=== PATIENT | male | born 1980 | race Caucasian/White ===

== ENCOUNTER 2025-01-26 10:12 | Emergency (ER) | payer OTHER, SELFPAY ==
--- OUTSIDE RECORDS SUMMARY | 2025-01-12 12:30 | XMS_ITS | Encounter Summary ---
Author Organization [facility] Address [address] [place] [address] Care Team Providers Care Seals Engraver Name Role Phone Jadiel Garcia Primary Care Provider [phone] Encounter Details DateTypeDepartmentCare Team (Latest Contact Info)Gxvmonmuccv76/17/2025 12:30 PM ESTOffice Visit [facility] [address] [place] [id number] Shasta Castañeda, SALES EXHIBITOR [address] [id number] Cough, unspecified type (Primary Dx); Viral URI with cough Social History Tobacco UseTypesPacks/DayYears UsedDateSmoking Tobacco: FormerCigarettesQuit: 02/26/2014Passive Smoke Exposure: PastSmokeless Tobacco: CurrentChewAlcohol Use Standard Drinks/WeekCommentsYes0 (1 standard drink = 0.6 oz pure alcohol) caffeine: more than 4 cups per day coffeeSocial Connection and Isolation Panel AnswerDate RecordedIn a typical week, how many times do you talk on the phone with family, friends, or neighbors?Twice a week05/23/2023How often do you get together with friends or relatives?Twice a week05/23/2023How often do you attend lutheran or baptism services?More than 4 times per year05/23/2023o you belong to any clubs or organizations such as lutheran groups, unions, fraternal or athletic groups, or school groups?Yes05/23/2023How often do you attend meetings of the clubs or organizations you belong to?More than 4 times per year05/23/2023 Are you , , , , never , or living with a partner?Nnkhsvq6305/23/2023Overall Financial Resource Strain (CARDIA)AnswerDate RecordedHow hard is it for you to pay for the very basics like food, housing, medical care, and heating?Not hard at all05/23/2023Fin[facility] [place] of Occupational Health - Occupational Stress QuestionnaireAnswerDate RecordedDo you feel stress - tense, restless, nervous, or anxious, or unable to sleep at night because yourmind is troubled all the time - these days?Not at all05/23/2023 Exercise Vital SignAnswerDate RecordedOn average, how many days per week do you engage in moderate to strenuous exercise (like a brisk walk)?7 days05/23/2023On average, how many minutes do you engage in exercise at this level?150+ min 05/23/2023Hunger Vital SignAnswerDate RecordedWithin the past 12 months, you worried that your food would run out before you got the money to buymore.Never true05/23/2023Within the past 12 months, the food you bought just didn't last and you didn't have money to get more.Never true05/23/2023RAPARE - TransportationAnswerDate RecordedIn the past 12 months, has lack of transportation kept you from medical appointments or from getting medications?No 05/23/2023In the past 12 months, has lack of transportation kept you from meetings, work, or from getting things needed for daily living?No05/23/2023 Housing Stability Vital SignAnswerDate RecordedIn the last 12 months, was there a time when you were not able to pay the mortgage or rent on time?No05/23/2023In the last 12 months, how many places have you lived?In the last 12 months, was there a time when you did not have a steady place to sleep or slept in ashelter (including now)?No05/23/2023UDIT-CAnswerDate RecordedQ1: How often do you have a drink containing alcohol?Never01/12/2025verage Number of Drinks Not on file01/12/2025Frequency of Binge DrinkingNot on file01/12/2025Sex and Gender InformationValueDate RecordedSex Assigned at BirthNot on fileLegal Sex Male05/10/2022 7:06 PM EDTGender IdentityNot on fileSexual OrientationNot on filedocumented as of this encounter Last Filed Vital Signs Vital SignReadingTime TakenCommentsBlood Vfhlmmgr580/9001/12/2025 12:38 PM EST Cowbd677801/12/2025 12:38 PM EBWJgqxoejosxf55.1 ??C (98.7 ??F)01/12/2025 12:38 PM ESTRespiratory Qrik8212 12:38 PM ESTOxygen Rsajwlyzsp53%01/12/2025 12:38 PM ESTInhaled Oxygen Concentration--Hefysp29.7 kg (178 lb)01/12/2025 12:38 PM ESTHeight--Body Mass Index29.62005/24/2023 2:21 PM EDTdocumented in this encounter Functional Status documented as of this encounter Progress Notes * Shasta Castañeda NP - 01/12/2025 12:30 PM EST Images from the original note were not included. [address] [facility], [address] P: [phone] F: [phone] HPI Historian of HPI: patient Rik Pierre is a 44 y.o. male who presents today to the Urgent Care with the following complaints and denials which have been present for 4 day(s) Pt denies any vomiting and nausea. Pt admits to slight diarrhea the last few days. Pt agrees to testing. C/O Denies Symptom Comments [x] [] Runny Nose PND [] [x] Difficulty Swallowing [x] [] Sore Throat Raspy voice, tenderness [x] [] Cough cough, chest congestion [] [x] Ear Pain [x] [] Fever Feels warm [x] [] Chills Last night [x] [] Nasal Congestion Stuffy in the morning [x] [] Myalgia Joint stiffness [] [x] Sinus Pain [x] [] Sinus Pressure Bilateral eye pressure Additional Comments: pt has taken zinc, day and night qyill, OTC medication with relief ROS A complete system ROS was performed and negative aside from the pertinent positives noted in the HPI and PE. Visit Vitals BP 130/90 (BP Location: Left arm, Patient Position: Sitting, BP Cuff Size: Large adult) Pulse 80 Temp 98.7 ??F (Oral) Resp 20 Wt 178 lb SpO2 99% BMI 29.62 kg/m?? Smoking Status Former BSA 1.92 m?? IH Testing: The following tests were performed PCR Strep Test PCR Flu Test PCR COVID Test SEE TEST(S) ORDERS FOR RESULTS PHYSICAL EXAM Physical Exam Vitals reviewed. Constitutional: General: He is not in acute distress. Appearance: Normal appearance. HENT: Head: Normocephalic and atraumatic. Right Ear: Hearing, tympanic membrane, ear canal and external ear normal. Left Ear: Hearing, tympanic membrane, ear canal and external ear normal. Nose: Congestion present. Mouth/Throat: Lips: [place]. Mouth: Mucous membranes are moist. Pharynx: Oropharynx is clear. Uvula midline. Postnasal drip present. Eyes: Extraocular Movements: Extraocular movements intact. Conjunctiva/sclera: Conjunctivae normal. Pupils: Pupils are equal, round, and reactive to light. Cardiovascular: Rate and Rhythm: Normal rate and regular rhythm. Pulses: Normal pulses. Heart sounds: Normal heart sounds. Pulmonary: Effort: Pulmonary effort is normal. No respiratory distress. Breath sounds: Normal breath sounds. No wheezing, rhonchi or rales. Musculoskeletal: General: Normal range of motion. Cervical back: Normal range of motion and neck supple. Skin: General: Skin is warm and dry. Capillary Refill: Capillary refill takes less than 2 seconds. Findings: No rash. Neurological: General: No focal deficit present. Mental Status: He is alert and oriented to person, place, and time. Psychiatric: Mood and Affect: Mood normal. Behavior: Behavior normal. Thought Content: Thought content normal. Judgment: Judgment normal. TREATMENT PLAN 1. Cough, unspecified type (Primary) Strep, COVID 19, and Influenza A/B testing is negative. New medication as directed. Acetaminophen for reduction of fever and pain. Increase fluids. Good handwashing. Discussed warning signs of worsening infection and when to report to ER. New toothbrush in 24 hours. Call office if symptoms have notstarted to improve within the next 72 hours. Patient verbalized understanding of instructions. - STREP DNA PROBE - RAPID DNA COVID - INFLUENZA DNA PROBE - benzonatate (Tessalon) 100 MG capsule; Take 1 capsule (100 mg) by mouth 3 (three) times a day as needed for cough for up to 7 days Do not crush or chew. Dispense: 21 capsule; Refill: 0 2. Viral URI with cough Pt advised they likely have a viral illness and will clear on its own by day 7- 10. Advised on what OTC medications to take to treat fever, sore throat, body aches, sinus pain, cough, chest congestion, nose and sinus congestion, sneezing, runny nose, watery, itchy eyes, overall congestion relief, faster recovery and how to avoid spreading your illness. Call or RTO if worsening or not improving as expected. - methylPREDNISolone (Medrol Dospak) 4 MG tablets; Follow schedule on package instructions Dispense: 21 tablet; Refill: 0 documented in this encounter Plan of Treatment Not on file documented as of this encounter Procedures Procedure NamePriorityDate/TimeAssociated DiagnosisCommentsSTREP DNA PROBE Syuuzrq5001/12/2025 1:00 PM EST Cough, unspecified type RAPID DNA HLJIUYfuhnxh50/17/2025 1:00 PM EST Cough, unspecified type INFLUENZA DNA HTNWALcnhykb94/17/2025 1:00 PM EST Cough, unspecified type documented in this encounter Results * INFLUENZA DNA PROBE (01/12/2025 1:00 PM EST)ComponentValueRef RangeTest Method Analysis TimePerformed AtPathologist SignatureINFLUENZA AnegativeNegative INFLUENZA BnegativeNegativeSpecimen (Source)Anatomical Location / Laterality Collection Method / VolumeCollection TimeReceived TbmpFhkxi76/17/2025 1:00 PM EST Narrative Authorizing ProviderResult TypeResult StatusGordo Joy DOPOINT OF CARE TEST ENTER/EDIT ORDERABLESFinal Result * RAPID DNA COVID (01/12/2025 1:00 PM EST)ComponentValueRef RangeTest Method Analysis TimePerformed AtPathologist SignatureCOVID-19 NAATnegativeNegative Specimen (Source)Anatomical Location / LateralityCollection Method / Volume Collection TimeReceived SzriYdhux88/17/2025 1:00 PM EST Narrative Authorizing ProviderResult TypeResult StatusGordo Jennie Rufino DOPOINT OF CARE TEST ENTER/EDIT ORDERABLESFinal Result * STREP DNA PROBE (01/12/2025 1:00 PM EST)ComponentValueRef RangeTest Method Analysis TimePerformed AtPathologist SignatureRESULTnegativeNegativeSpecimen (Source)Anatomical Location / LateralityCollection Method / VolumeCollection TimeReceived RxvlFsogpz51/17/2025 1:00 PM EST Narrative Authorizing ProviderResult TypeResult StatusGordo Joy DOPOINT OF CARE TEST ENTER/EDIT ORDERABLESFinal Result documented in this encounter Visit Diagnoses Diagnosis Cough, unspecified type- Primary Viral URI with cough documented in this encounter Care Teams Team MemberRelationshipSpecialtyStart DateEnd Date Jadiel Garcia, [address] [address] PCP - GeneralFamily Medicine07/04/22documented as of this encounter
[2025-01-26] VITALS (25 sets, daily range): BP systolic 128–158; BP diastolic 90–110; PULSE 91–136; TEMP 36.7; O2SAT 95–98; BMI 29.8
--- NOTE | 2025-01-26 10:22 | ED.CHESTPAI1 ---
HPI - Chest Pain General Chief Complaint: Chest Pain Stated Complaint: CHEST PAIN SOB Time Seen by Provider: 01/26/25 10:22 Source: patient Mode of arrival: walk-in Limitations: no limitations History of Present Illness HPI narrative: The patient is a 45-year-old male with no known past medical history, presenting to the ER with a right upper chest pain that started almost within the last hour, patient mentioned that he was getting better from a viral infection and possibly bronchitis and he was treated with Medrol Dosepak for that, the patient mentioned that he was driving to work when he noted the pain in his right upper chest mostly around his right shoulder and associated with taking deep breath, the patient mentioned that he also having anxiety and he felt short of breath with the pain The patient when he woke up this morning he had no complaint no other concerns 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 where have to drive from 5 minutes to an hour Patient have a history of smoking cigarettes around a pack a day and he also have a family history of his father dying of lung cancer at the age of 51 Related Data Home Medications ?Medication ?Instructions ?Recorded ?Confirmed omeprazole 40 mg capsule,delayed 40 mg PO DAILY 01/26/25 01/26/25 release Previous Rx's ?Medication ?Instructions ?Recorded diclofenac sodium 75 mg 75 mg PO BID PRN pain #20 tabs 01/26/25 tablet,delayed release Allergies Allergy/AdvReac Type Severity Reaction Status Date / Time No Known Drug Allergies Allergy Verified 01/26/25 10:20 Review of Systems ROS Status of ROS 10 or more systems reviewed and unremarkable except as noted in history and below Exam Narrative Exam Narrative: Nurses notes and vital signs reviewed and patient is not hypoxic. General: Well-appearing and in no apparent distress. Skin: Warm, dry, no pallor noted. No rash. Head: Normocephalic, atraumatic. Neck: Supple, non-tender. Cardiovascular: Regular Rate and Rhythm without murmur, gallop or rub. Respiratory: No accessory muscle use or respiratory distress. Lungs are clear to auscultation, no wheezing, rales or rhonchi Chest Wall: no tenderness Back: No midline thoracic or lumbar vertebral tenderness. No CVA tenderness Musculoskeletal: normal ROM, no calf or popliteal tenderness, no lower extremity edema/swelling GI: Abdomen is soft, non-distended. Normal bowel sounds. No masses appreciated. No tenderness to palpation. No rebound, guarding, or rigidity noted. Neurological: A&O x4. No cranial nerve dysfunction observed. No truncal ataxia. Moves all extremities. Sensation intact. Psychiatric: Cooperative and interactive. Normal mood and affect. Constitutional Vital Signs, click to edit/add: Last Vital Signs Temp 98.1 F 01/26/25 10:16 Pulse 106 H 01/26/25 11:24 Resp 18 01/26/25 10:16 BP 142/100 H 01/26/25 11:24 Pulse Ox 96 01/26/25 11:24 O2 Del Method Room Air 01/26/25 10:16 Course Vital Signs Vital signs: Vital Signs Temperature 98.1 F 01/26/25 10:16 Pulse Rate 136 H 01/26/25 10:16 Respiratory Rate 18 01/26/25 10:16 Blood Pressure 158/110 H 01/26/25 10:16 Pulse Oximetry 98 01/26/25 10:16 Oxygen Delivery Method Room Air 01/26/25 10:16 Temperature 98.1 F 01/26/25 10:16 Pulse Rate 106 H 01/26/25 11:24 Respiratory Rate 18 01/26/25 10:16 Blood Pressure 142/100 H 01/26/25 11:24 Pulse Oximetry 96 01/26/25 11:24 Oxygen Delivery Method Room Air 01/26/25 10:16 MDM - Chest Pain MDM Narrative Medical decision making narrative: The patient EKG on arrival showing sinus tachycardia with a heart rate of [address] elevation no ST depression Patient chest x-ray showed some nodularity and with his history father dying at the age of 51 with lung cancer the patient had a CT of the chest with contrast that showed no acute pathology except for emphysema The patient CBC chemistry as well as repeated troponin twice showed no acute pathology He was feeling much better after being treated with Toradol he was discharged home with Carol with instruction to follow-up with his primary care The patient instructed about the importance of monitoring his symptoms in case of repeated pain he is to follow-up with the primary care for a stress test although he did had a stress test done almost a few years ago when he was diagnosed also with PTSD The patient to follow-up with the primary care within 2 to 3 days and to come back to the ER in case of any worsening of the current symptoms or any new symptoms or concerns Lab Data Labs: Lab Results 01/26/25 01/26/25 Range/Units 10:29 12:18 WBC 9.5 (4.0-11.0) 10^3/uL RBC 4.62 L (4.70-6.10) 10^6/uL Hgb 15.7 (14.0-18.0) g/dL Hct 45.4 (42.0-54.0) % MCV 98.3 H (80.0-94.0) fL MCH 34.0 (25.9-34.0) pg MCHC 34.6 (29.9-35.2) g/dL RDW 11.8 (11.0-15.0) % Plt Count 361 (150-450) 10^3/uL MPV 8.8 L (9.5-13.5) fL Neut % (Auto) 68.8 (43.0-75.0) % Lymph % (Auto) 19.4 L (20.5-60.0) % Treasure % (Auto) 8.7 (1.7-12.0) % Eos % (Auto) 1.6 (0.9-7.0) % Baso % (Auto) 0.7 (0.2-2.0) % Neut # (Auto) 6.5 (1.4-6.5) 10^3/uL Lymph # (Auto) 1.8 (1.2-3.8) 10^3/uL Treasure # (Auto) 0.8 (0.3-0.8) 10^3/uL Eos # (Auto) 0.2 (0.0-0.7) 10^3/uL Baso # (Auto) 0.1 (0.0-0.1) 10^3/uL Abs Immat Gran (auto) 0.08 H (0.00-0.03) 10^3/uL Imm/Tot Granulo (auto) 0.8 H (0.0-0.5) % PT 10.4 (9.0-11.6) sec INR 0.99 D-Dimer 0.23 (<=0.59) mg/L FEU Sodium 138 (136-145) mmol/L Potassium 4.0 (3.5-5.1) mmol/L Chloride 102 (98-107) mmol/L Carbon Dioxide 25.4 (21.0-32.0) mmol/L Anion Gap 14.6 BUN 8.0 (7.0-18.0) mg/dL Creatinine 0.97 (0.70-1.30) mg/dL Est GFR ( Amer) >60 (>=60 mL/min/1.73m^2) Est GFR (Non-Af Amer) >60 (>=60 mL/min/1.73m^2) BUN/Creatinine Ratio 8.2 Glucose 144 H (74-106) mg/dL Calcium 8.6 (8.5-10.1) mg/dL Total Bilirubin 0.6 (0.2-1.0) mg/dL AST 35 (15-37) U/L ALT 55 (16-63) U/L Alkaline Phosphatase 100 (46-116) U/L Troponin I High Sens 5.4 7.5 (4.0-76.1) pg/mL Total Protein 7.4 (6.4-8.2) g/dL Albumin 3.5 (3.4-5.0) g/dL Globulin 3.9 g/dL Albumin/Globulin Ratio 0.9 Discharge Plan Discharge Chief Complaint: Chest Pain Clinical Impression: Atypical chest pain, Pleuritic pain Patient Disposition: Home, Self-Care Time of Disposition Decision: 13:19 Condition: Good Prescriptions / Home Meds: New diclofenac sodium 75 mg tablet,delayed release (DR/EC) 75 mg PO BID PRN (Reason: pain) Qty: 20 0RF No Action omeprazole 40 mg capsule,delayed release(DR/EC) 40 mg PO DAILY Print Language: Malay Instructions: Chest Wall Pain (ED) Referrals: YELITZA AGUIRRE [Primary Care Provider, Family Practice] - 1 week
--- NOTE | 2025-01-26 10:23 | XR_ITS ---
The [address] [address] Patient Name: RENETTA LOPEZ MRN: [id number] date: 1980 Sex: M Assigned Patient Location: ER Current Patient Location: ED.MAIN Accession/Order Number: [id number] Exam Date: 01/26/2025 10:32 Report Date: 01/26/2025 11:08 At the request of: ABHILASH HOWELL MD Procedure: XR chest 1V PORTABLE AP ERECT CHEST 1028 hours CLINICAL HISTORY: Chest pain and increased heart rate today. Tobacco use. COMPARISON: None The heart is within normal limits. There is no vascular congestion. A 1 cm nodular asymmetry is seen within the supra hilar region on the right. It is uncertain if this is a vessel on end or possibly a nodule. No consolidation is noted. There is no sizable effusion or pneumothorax. The osseous structures are intact. XR/XR chest 1V IMPRESSION: EQUIVOCAL SUPRAHILAR NODULAR ASYMMETRY ON THE RIGHT. IF PRIOR OUTSIDE STUDIES EXIST, COMPARISON IS SUGGESTED. OTHERWISE FOLLOW-UP COULD BE OBTAINED TO ASSESS STABILITY/REPRODUCIBILITY. NO ACUTE CARDIOPULMONARY FINDINGS. Impression dictated by: Echo Das M.D. 01/26/2025 11:08 AM Dictation Location: [place] [address] Electronically authenticated by: [id number] Y Date: 01/26/2025 11:08
--- NOTE | 2025-01-26 10:23 | ECG_ITS ---
The [facility] Test Date: 2025-01-26 Pat Name: RENETTA LOPEZ Department: Room: - Gender: Male Pulp And Paper Tester: : 1980 Requested By: [id number] Order Number: [id number] Reading MD: Jack Steward Measurements Intervals [place] Rate: 131 P: 70 [place]: 146 QRS: 76 QRSD: 96 T: 33 QT: 370 QTc: 447 Interpretive Statements 1120 Sinus tachycardia 9140 abnormal rhythm ECG No previous ECG available for comparison Electronically Signed On 01-26-2025 13:33:12 EST by Jack Steward
[2025-01-26 10:33] LABS: Hematocrit 45.4 % (42.0-54.0); Hemoglobin 15.7 g/dL (14.0-18.0); Immature Granulocytes Abs Auto 0.08 10^3/uL (0.00-0.03); Immature Granulocytes Pct Auto 0.8 % (0.0-0.5); Lymphocytes Absolute Auto 1.8 10^3/uL (1.2-3.8); Mean Corpuscular HGB Conc 34.6 g/dL (29.9-35.2); Mean Corpuscular Hemoglobin 34.0 pg (25.9-34.0); Mean Corpuscular Volume 98.3 fL (80.0-94.0); Platelet Count 361 10^3/uL (150-450); Red Blood Count 4.62 10^6/uL (4.70-6.10); White Blood Count 9.5 10^3/uL (4.0-11.0)
[2025-01-26] MEDS: KETOROLAC TROMETHAMINE 30 MG/ML VIAL IVP (10:40)
[2025-01-26] MEDS: FAMOTIDINE/PF 20 MG/2 ML VIAL IV (10:40)
[2025-01-26] MEDS: 0.9 % SODIUM CHLORIDE 1,000 ML 1000 ML IV (10:41)
[2025-01-26 10:49] LABS: INR 0.99; Prothrombin Time 10.4 sec (9.0-11.6)
[2025-01-26 10:52] LABS: Alanine Aminotransferase 55 U/L (16-63); Albumin Globulin Ratio 0.9; Albumin Level 3.5 g/dL (3.4-5.0); Alkaline Phosphatase 100 U/L (46-116); Anion Gap 14.6; Aspartate Amino Transferase 35 U/L (15-37); Blood Urea Nitrogen 8.0 mg/dL (7.0-18.0); Calcium 8.6 mg/dL (8.5-10.1); Carbon Dioxide 25.4 mmol/L (21.0-32.0); Chloride 102 mmol/L (98-107); Estimated GFR (African America >60 (>=60 mL/min/1.73m^2); Estimated GFR (Non-African Ame >60 (>=60 mL/min/1.73m^2); Globulin 3.9 g/dL; Glucose 144 mg/dL (74-106); Potassium 4.0 mmol/L (3.5-5.1); Sodium 138 mmol/L (136-145); Total Protein 7.4 g/dL (6.4-8.2)
--- OUTSIDE RECORDS SUMMARY | 2025-01-26 11:10 | XMS_ITS | Clinical Summary ---
Author Organization [facility] Address [address] [place] [address] Care Team Providers Care Surgical Training Specialist Name Role Phone Kimberley Rapp DO Primary Care Provider [phone] Social History Tobacco UseTypesPacks/DayYears UsedDateSmoking Tobacco: Never AssessedSex and Gender InformationValueDate RecordedSex Assigned at BirthNot on fileLegal Sex Male09/26/2021 5:48 PM EDTGender IdentityNot on fileSexual OrientationNot on file Plan of Treatment Not on file Care Teams Team MemberRelationshipSpecialtyStart DateEnd Date Kimberley Rapp, [address] [place] [address] [facility]05/18/21
--- OUTSIDE RECORDS SUMMARY | 2025-01-26 11:10 | XMS_ITS | Clinical Summary ---
Author Organization [facility] Address [address], [address] [place] [address] Care Team Providers Care Utility Helicopter Repairer Name Role Phone Jadiel Garcia DO Primary Care Provider [phone] Social History Tobacco UseTypesPacks/DayYears UsedDateSmoking Tobacco: Never AssessedSex and Gender InformationValueDate RecordedSex Assigned at BirthNot on fileLegal Sex Male04/09/2012 1:07 AM ESTGender IdentityNot on fileSexual OrientationNot on file Plan of Treatment Not on file Insurance * Guarantor: Rik PierreAccount TypeRelation to PatientDate of BirthPhone Billing AddressPersonal/AcxotoKide1980 [address] [place] [address] Care Teams Team MemberRelationshipSpecialtyStart DateEnd Date Jadiel Garcia DO PCP - [facility]State [facility]08/06/20
--- OUTSIDE RECORDS SUMMARY | 2025-01-26 11:10 | XMS_ITS | Encounter Summary ---
Author Organization [facility] Address [address] [place] [address] Care Team Providers Care Contract Officer Name Role Phone JoseJadiel parish Primary Care Provider Encounter Details DateTypeDepartmentCare Team (Latest Contact Info)Jvszjmryqap86/17/2025Travel Social History Tobacco UseTypesPacks/DayYears UsedDateSmoking Tobacco: FormerCigarettesQuit: [...] relatives?Twice a week05/23/2023How often do you attend hoahaoism or yazidi services?More than 4 times per year05/23/2023o you belong to any clubs or organizations such as hoahaoism groups, unions, fraternal or athletic groups, or school groups?Yes05/23/2023How often do you attend meetings of the clubs or organizations you belong to?More than 4 times per year05/23/2023 Are you , , , , never , or living with a partner?Tiuczbt2605/23/2023Overall Financial Resource Strain (CARDIA)AnswerDate RecordedHow hard is it for you to pay for the very basics like food, housing, medical care, and heating?Not hard at all05/23/2023Finbr[facility] [place] of Occupational Health - Occupational Stress QuestionnaireAnswerDate [...] steady place to sleep or slept in downeyelter (including now)?No05/23/2023UDIT-CAnswerDate RecordedQ1: How often do you have a drink containing alcohol?Never01/12/2025verage Number of Drinks Not on file01/12/2025Frequency of Binge DrinkingNot on file01/12/2025Sex and Gender InformationValueDate RecordedSex Assigned at BirthNot on fileLegal Sex Male05/10/2022 7:06 PM EDTGender IdentityNot on fileSexual OrientationNot on filedocumented as of this encounter Functional Status documented as of this encounter Plan of Treatment Not on file documented as of this encounter Visit Diagnoses Not on filedocumented in this encounter Care Teams Team MemberRelationshipSpecialtyStart DateEnd Date Jadiel Garcia, [address] [facility] [address] [id number] PCP - GeneralFamily Medicine07/04/22documented as of this encounter
--- OUTSIDE RECORDS SUMMARY | 2025-01-26 11:10 | XMS_ITS | Clinical Summary ---
Author Organization [facility] Healthcare Address [address] [place] [address] Care Team Providers Care Employment Manager Name Role Phone Jadeil Garcia Primary Care Provider [phone] Allergies No known active allergies Medications MedicationSigDispense QuantityRefillsLast FilledStart DateEnd DateStatus LORazepam (Ativan) 0.5 MG tablet Take 0.5 mg by mouth every 6 (six) hours if needed for anxiety.06/27/2022ctive methylPREDNISolone (Medrol Dospak) 4 MG tablets Indications:Viral URI with coughFollow schedule on package instructions 21 tablet 5103/21/2024Expired benzonatate (Tessalon) 100 MG capsule Indications:Cough, unspecified typeTake 1 capsule (100 mg) by mouth 3 (three) times a day as needed for cough for up to 7 days Do not crush or chew. 21 capsule Expired Active Problems No known active problems Encounters DateTypeDepartmentCare RegoBjuysfqvnzz00/17/2025 12:30 PM ESTOffice Visit [facility] [address] [place] [address] Shasta Castañeda, CHURNER Cough, unspecified type (Primary Dx); Viral URI with cough01/12/2025Travelfrom Last 3 Months Family History Medical HistoryRelationNameCommentsLung cancerFathermets to brainDiabetes Paternal TazozrjvpjnBmmlvvflGhstHzvnghPptuwzlhJmsqtszo1AtojakSavjwzzqMfthfgPtsbx Paternal GrandmotherSisterx3 Social History Tobacco UseTypesPacks/DayYears UsedDateSmoking Tobacco: FormerCigarettesQuit: 02/26/2014Passive Smoke Exposure: PastSmokeless Tobacco: CurrentChew Tobacco Cessation:Ready to Q uit: No; Counseling Given: Not Answered Alcohol UseStandard Drinks/WeekCommentsYes0 (1 standard drink = 0.6 oz pure alcohol)caffeine: more than 4 cups per day coffeeSocial Connection and Isolation PanelAnswerDate RecordedIn a typical week, how many times do you talk on the phone with family, friends, or neighbors?Twice a week05/23/2023How often do you get together with friends or relatives?Twice a week05/23/2023How often do you attend worship or congregation services?More than 4 times per year05/23/2023o you belong to any clubs or organizations such as worship groups, unions, fraternal or athletic groups, or school groups?Yes05/23/2023How often do you attend meetings of the clubs or organizations you belong to?More than 4 times per year05/23/2023 Are you , , , , never , or living with a partner?Fbhqjbp4505/23/2023Overall Financial Resource Strain (CARDIA)AnswerDate RecordedHow hard is it for you to pay for the very basics like food, housing, medical care, and heating?Not hard at all05/23/2023[facility] - Occupational Stress QuestionnaireAnswerDate [...] steady place to sleep or slept in [facility] (including now)?No05/23/2023UDIT-CAnswerDate RecordedQ1: How often do you have a drink containing alcohol?Never01/12/2025verage Number of Drinks Not on file01/12/2025Frequency of Binge DrinkingNot on file01/12/2025Sex and Gender InformationValueDate RecordedSex Assigned at BirthNot on fileLegal Sex Male05/10/2022 7:06 PM EDTGender IdentityNot on fileSexual OrientationNot on file Last Filed Vital Signs Vital SignReadingTime TakenCommentsBlood Lvmfhjld411/9001/12/2025 12:38 PM EST Vogpq840501/12/2025 12:38 PM QOUEstbwvzrxyf03.1 ??C (98.7 ??F)01/12/2025 12:38 PM ESTRespiratory Jlmq4240 12:38 PM ESTOxygen Xsqalshiru95%01/12/2025 12:38 PM ESTInhaled Oxygen Concentration--Uxzkiz79.7 kg (178 lb)01/12/2025 12:38 PM VSHVoblre806.1 cm (5' 5 )05/24/2023 2:21 PM EDTBody Mass Index29.62005/24/2023 2:21 PM EDT Plan of Treatment Health MaintenanceDue DateLast DoneCommentsCT Qiylcohorsxi1979Colonoscopy 1979Colorectal Cancer Iausqvdbg1979FIT-DNA1979FIT1979 FOBT1979 0683Wmwximvdilerk1979COVID-19 Vaccine (2024- season) 2024Influenza Vaccine (#1)2024Pneumococcal Vaccine: Pediatrics (0 to 5 Years) and At-Risk Patients (6 to 64 Years)Aged OutNo longer eligible based on patient's age to complete this topic Procedures Procedure NamePriorityDate/TimeAssociated DiagnosisCommentsINFLUENZA DNA PROBE Mmbkvvm7401/12/2025 1:00 PM EST Cough, unspecified type RAPID DNA VYYTINxbifsw45/17/2025 1:00 PM EST Cough, unspecified type STREP DNA QETUBDyswqcg98/17/2025 1:00 PM EST Cough, unspecified type from Last 3 Months Results * STREP DNA PROBE (01/12/2025 1:00 PM EST)ComponentValueRef RangeTest Method Analysis TimePerformed AtPathologist SignatureRESULTnegativeNegativeSpecimen (Source)Anatomical Location / LateralityCollection Method / VolumeCollection TimeReceived UnymHxgjmb33/17/2025 1:00 PM EST Narrative Authorizing ProviderResult TypeResult StatusGordo Joy DOPOINT OF CARE TEST ENTER/EDIT ORDERABLESFinal Result * RAPID DNA COVID (01/12/2025 1:00 PM EST)ComponentValueRef RangeTest Method Analysis TimePerformed AtPathologist SignatureCOVID-19 NAATnegativeNegative Specimen (Source)Anatomical Location / LateralityCollection Method / Volume Collection TimeReceived BhwaYslgc00/17/2025 1:00 PM EST Narrative Authorizing ProviderResult TypeResult StatusAnthdakota Joy DOPOINT OF CARE TEST ENTER/EDIT ORDERABLESFinal Result * INFLUENZA DNA PROBE (01/12/2025 1:00 PM EST)ComponentValueRef RangeTest Method Analysis TimePerformed AtPathologist SignatureINFLUENZA AnegativeNegative INFLUENZA BnegativeNegativeSpecimen (Source)Anatomical Location / Laterality Collection Method / VolumeCollection TimeReceived AqjnNrlxp64/17/2025 1:00 PM EST Narrative Authorizing ProviderResult TypeResult StatusAnthdakota Joy DOPOINT OF CARE TEST ENTER/EDIT ORDERABLESFinal Result from Last 3 Months Insurance Care Teams Team MemberRelationshipSpecialtyStart DateEnd Date Jadiel Garcia DO [address] [place] [address] PCP - GeneralFamily Medicine07/04/22
--- NOTE | 2025-01-26 11:23 | CT_ITS ---
The [address] [address] Patient Name: RENETTA LOPEZ MRN: [id number] date: 1980 Sex: M Assigned Patient Location: ER Current Patient Location: ER Accession/Order Number: [id number] Exam Date: 01/26/2025 11:42 Report Date: 01/26/2025 12:40 At the request of: ABHILASH HOWELL MD Procedure: CT chest w con CT chest w con 01/26/2025 11:50 AM SIGN AND SYMPTOMS: ^right chest pain, tachycardia CONTRAST: 100 mL of intravenous Omnipaque 300 TECHNIQUE: Multidetector CT axial slices of the chest were obtained with IV contrast. Multiplanar reformats were performed and viewed on a separate workstation and reviewed to further define anatomy and possible pathology. CT was performed with one or more of the following dose reduction techniques: Automated exposure control, adjustment of the mA and/or kV according to patient size, or use of iterative reconstruction technique. COMPARISON: None. FINDINGS: Lower neck: Thyroid gland within normal limits, no supraclavicle adenopathy. Vessels: Within normal limits. Mediastinum and Marti: Within normal limits. Heart: Normal size. No pericardial effusion. Airways: Within normal limits Lungs: There is dependent atelectasis. Emphysematous changes are noted predominantly in the upper lobes. Pleura: Within normal limits. Chest Wall: Within normal limits. Upper Abdomen: Uncomplicated colonic diverticula are noted. Bones: Within normal limits. CT/CT chest w con IMPRESSION: No acute cardiopulmonary pathology. There is dependent atelectasis. Emphysematous changes are noted predominantly in the upper lobes. Impression dictated by: Geraldo Johnson M.D. 01/26/2025 12:40 PM Dictation Location: [place] [address] Electronically authenticated by: [id number] Y Date: 01/26/2025 12:40
== END 2025-01-26 13:47 | disposition home or self-care (01) ==
PROVIDERS: Emergency Provider Emergency Medicine; PCP Family Medicine
DX: R07.89 Other chest pain (principal); R07.81 Pleurodynia; F17.210 Nicotine dependence, cigarettes, uncomplicated
CPT/HCPCS: 36415; 71045; 71260; 80053; 84484; 85025; 85378; 85610; 93005; 96374; 96375; 99285; J1885; J3490; Q9967